=== PATIENT | male | born 1965 | race Caucasian/White ===

== ENCOUNTER 2022-02-17 13:10 | Emergency (ER) | payer SELFPAY ==
[2022-02-17 13:25] VITALS: BP 161/89; PULSE 75; RESP 18; TEMP 37.2; O2SAT 98; BMI 25.1
--- NOTE | 2022-02-17 13:34 | CRLHL7_ITS ---
For Patients: As a result of the Century Cures Act, medical imaging exams and procedure reports are released immediately into your electronic medical record. You may view this report before your referring provider. If you have questions, please contact your health care provider. INDICATION: Left lower quadrant abdominal pain. TECHNIQUE: CT abdomen and pelvis acquired with 79 mL Isovue 370 IV contrast. Coronal and sagittal reformats were generated. COMPARISON: None. FINDINGS: Lower chest: Unremarkable. Liver: Unremarkable. Gallbladder and bile ducts: Small dependent density in the gallbladder is likely a small stone. No wall thickening or pericholecystic fluid. The common bile duct is normal in caliber. Spleen: Unremarkable. Pancreas: Unremarkable. Adrenal glands: Unremarkable. No nodules. Kidneys and Ureters: Unremarkable. No suspicious masses, stones, or hydronephrosis. Lymph Nodes and Retroperitoneum: Unremarkable. Vasculature: Unremarkable. GI tract: Unremarkable. Normal in caliber. Normal appendix. Peritoneum/Abdominal Wall: Unremarkable. No free air or free fluid. Bilateral fat containing inguinal hernias. Pelvic Viscera: Unremarkable. Bladder: Unremarkable. Bones: Mild degenerative changes. No aggressive appearing lytic or blastic lesions. IMPRESSION: No significant CT abnormality in the abdomen or pelvis or findings to suggest the etiology of the patient`s symptoms. Please note that all CT scans at this facility use dose modulation, iterative reconstruction, and/or weight-based dosing when appropriate to reduce radiation dose to as low as reasonably achievable. Dictated by Shahab Oakley MD @ 02/17/2022 2:45:08 PM (Electronically Signed)
[2022-02-17 13:51] VITALS: TEMP 37.2
[2022-02-17] MEDS: 0.9 % SODIUM CHLORIDE 1000 ml 1,000 ML IV (13:51)
[2022-02-17] MEDS: KETOROLAC 30 MG/ML inj IVP (13:51)
[2022-02-17] MEDS: ONDANSETRON 2 MG/ML inj 4 MG IVP (13:52)
--- NOTE | 2022-02-17 13:52 | ED_ITS ---
HPI - Abdominal Pain General Date Seen: 02/17/22 Chief Complaint: Abdominal Pain Stated Complaint: Severe Pain in stomach w/ nausea Time Seen by Provider: 02/17/22 13:19 Source: patient Mode of arrival: ambulatory Limitations: no limitations History of Present Illness HPI narrative: Patient is a 56-year-old gentleman who presents ambulatory to the emergency room with his , he was initially seen in urgent care and like fill, transferred here cause of the thought possibly imaging would be needed. He has had left- sided lower abdominal pain now for approximately 1 weeks time. Waxes and wanes, he has been able to eat with so seated with this, but clearly the thing that helps the most is having a bowel movement. He has had no fevers or chills there has been no blood in his stools. Previous colonoscopies of all been normally said 2 have been done previously. No comment was made for diverticulosis noted with this. He has had no previous history of abdominal surgeries, denies any pain radiating to his back or anywhere else, associated with this is more of a crampy type discomfort, he did have a normal bowel movement today, but previously had gone to the bathroom for 4 days. 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 Takes omeprazole for us stomach and heartburn related issues. Was previously antihypertensives. Related Data Home Medications Medication Instructions Recorded Confirmed omeprazole 20 mg delayed 20 mg PO Q24H 02/17/22 02/17/22 release,disintegrating tablet Previous Rx's Medication Instructions Recorded hyoscyamine sulfate 0.125 mg 0.125 mg PO BID-QID PRN dyspepsia 02/17/22 tablet (Levsin) #30 tabs Allergies Allergy/AdvReac Type Severity Reaction Status Date / Time Penicillins Allergy Severe Hives Verified 02/17/22 13:24 Review of Systems Status of ROS Reports: 10 or more systems reviewed and unremarkable except as noted in History and below PFSH PFS Social History Smoking Status: Current every day smoker What tobacco products do you use: cigarettes Smoking packs per day: 0.5 Smoking cigarettes per day: 10.0 Years smoked: 30 Smoking pack-years: 15.00 Do you use any of these nicotine containing products: None Second hand tobacco smoke exposure: Yes How often do you have a drink containing alcohol: 4 or more times a week How many standard drinks containing alcohol do you have on a typical day: 5 or 6 How often do you have six or more drinks on one occasion: Never AUDIT-C Alcohol total score: 6 Non-prescribed substance use: denies use service: No Exam Narrative: Exam Narrative: Patient is seen in room 3 he is in no apparent distress he is alert and oriented speaking to me normally, with his , bit of a tamia complexion is noted. There is no scleral icterus redness TMs are normal oropharynx normal, neck is supple full range of motion, chest is clear bilaterally no wheezing crackles noted, easy respirations., S1-S2 are normal, no clicks murmurs or gallops on auscultation of his heart. His abdomen is soft and slightly obese, he has tenderness mild to moderate in the left lower quadrant, no peritoneal signs, bowel sounds are quiet, no hernias noted bilaterally and normal male genitalia. Moves all extremities independently and well, neurologically intact in his upper lower extremities, no skin rashes are no Const: Vital Signs, click to edit/add: Vital Signs - 24 hr 02/17/22 13:25 02/17/22 13:51 02/17/22 14:03 Temperature 99.0 F 99.0 F 99.0 F Pulse Rate [Right Radial] 75 75 Respiratory Rate 18 18 Blood Pressure [Ri ght Upper Arm] 161/89 H 161/89 H Pulse Oximetry 98 98 Oxygen Delivery Me thod Room Air Room Air 02/17/22 14:14 02/17/22 16:07 Temperature 99.0 F Pulse Rate [Right Radial] 70 70 Respiratory Rate 16 16 Blood Pressure [Ri ght Upper Arm] 147/92 H 152/89 H Pulse Oximetry 97 Oxygen Delivery Me thod Room Air Course Course Hospital Course: I reviewed with the patient and his that the CT was normal, no evidence of any acute abnormality laboratory test was reassuring, I wonder if this is a variant of irritable bowel syndrome, but I do not think there is an acute issue, such as diverticulitis nephrolithiasis her that sore to issue going on. Would recommend follow-up with primary care, will try some Levsin to see if this helps him. Vital Signs Vital signs: Initial Vital Signs Temperature 99.0 F 02/17/22 13:25 Temperature Source Temporal Artery Scan 02/17/22 13:25 Pulse Rate 75 02/17/22 13:25 Pulse Rhythm 02/17/22 13:25 Pulse Strength 3+ Normal 02/17/22 13:25 Respiratory Rate 18 02/17/22 13:25 Blood Pressure 161/89 H 02/17/22 13:25 Blood Pressure Mean 113 02/17/22 13:25 Pulse Oximetry 98 02/17/22 13:25 Oxygen Delivery Method 02/17/22 13:25 Vital Signs Temperature 99.0 F 02/17/22 13:25 Pulse Rate 75 02/17/22 13:25 Respiratory Rate 18 02/17/22 13:25 Blood Pressure 161/89 H 02/17/22 13:25 Pulse Oximetry 98 02/17/22 13:25 Oxygen Delivery Method 02/17/22 13:25 Temperature 99.0 F 02/17/22 16:07 Pulse Rate 70 02/17/22 16:07 Respiratory Rate 16 02/17/22 16:07 Blood Pressure 152/89 H 02/17/22 16:07 Pulse Oximetry 97 02/17/22 14:14 Oxygen Delivery Method 02/17/22 14:14 MDM - Abdominal Pain MDM Narrative Medical decision making narrative: During this evaluation of this patient I considered multiple differential diagnosis is which included the life-threatening such as appendicitis, aortic aneurysm, mesenteric ischemia, bowel perforation, volvulus, and bowel obstruction. Other differential diagnosis is include but are not limited to cholecystitis, pancreatitis, hepatitis, gastritis, GERD, diverticulitis, peptic ulcer disease, pyelonephritis/UTI, renal colic/stone, testicular torsion as well as other acute scrotal processes, inflammatory bowel disease, as well as other etiologies Medical Records Attestation: I reviewed the patient's medical records. Lab Data Attestation: I reviewed the patient's lab results. Labs: Lab Results 02/17/22 02/17/22 02/17/22 Range/Units 13:50 13:50 13:50 WBC 4.93 (4.50-11.00) K/uL RBC 5.50 (4.30-5.90) m/uL Hgb 17.4 (13.5-17.5) gm/dL Hct 51.8 (37.0-53.0) % MCV 94 (80-100) fL MCH 32 (26-34) pg MCHC 34 (32-36) gm/dL RDW Coeff of William 12.8 (11.5-15.5) % Plt Count 240 (140-440) K/uL Neut % (Auto) 59.7 (42.0-72.0) % Lymph % (Auto) 22.7 (20-44) % [place] % (Auto) 15.2 H (0.0-11.0) % Eos % (Auto) 1.4 (0.0-7.0) % Baso % (Auto) 0.8 (0.0-3.0) % Neut # (Auto) 2.94 (1.7-7.0) K/uL Lymph # (Auto) 1.12 (0.90-2.90) K/uL [place] # (Auto) 0.70 (0.00-0.90) K/UL Eos # (Auto) 0.07 (0.00-0.50) K/uL Baso # (Auto) 0.04 (0.00-0.30) K/uL Abs Immat Gran (auto) 0.01 (0.00-0.30) K/uL Sodium 132 L (135-149) mmol/L Potassium 4.8 (3.6-5.1) mmol/L Chloride 97 (96-114) mmol/L Carbon Dioxide 26 (20-32) mmol/L BUN 10 (7-30) mg/dL Creatinine 0.9 (0.5-1.5) mg/dL Estimated Creat Clear 84.67 Estimated GFR 100 ml/min Glucose 92 (60-115) mg/dL Lactate 1.3 (0.5-1.9) mmol/L Calcium 9.4 (8.4-10.6) mg/dL Total Bilirubin 1.0 (0.1-1.5) mg/dL Direct Bilirubin 0.1 (0.0-0.5) mg/dL AST 33 (12-35) U/L ALT 28 (4-50) U/L Alkaline Phosphatase 86 (40-150) U/L C-Reactive Protein < 0.5 L (0.5-1.0) mg/dL Total Protein 8.7 H (6.0-8.3) g/dL Albumin 4.9 (3.3-5.0) g/dL Amylase 100 H (18-89) U/L Lipase 160 (23-300) U/L Urine Color (Yellow) Urine Appearance (Clear) Urine pH (5.0-8.5) Ur Specific [place]osc[place] (1.000-1.030) Urine Protein (Negative) Urine Glucose (UA) (Negative) Urine Ketones (Negative) Urine Blood (Negative) Urine Nitrite (Negative) Urine Bilirubin (Negative) Urine Urobilinogen (0.2-1.0) Ur Leukocyte Esterase (Negative) Urine RBC (0-2) Urine WBC (0-5) Ur Squamous Epith Cells (None-Few) Urine Bacteria (None) Ethyl Alcohol < 0.01 L (0.01-0.03) % SARS-CoV-2 (PCR) (Negative) Influenza Type A (PCR) (Negative) Influenza Type B (PCR) (Negative) RSV (PCR) (Negative) 02/17/22 02/17/22 Range/Units 13:50 15:20 WBC (4.50-11.00) K/uL RBC (4.30-5.90) m/uL Hgb (13.5-17.5) gm/dL Hct (37.0-53.0) % MCV (80-100) fL MCH (26-34) pg MCHC (32-36) gm/dL RDW Coeff of William (11.5-15.5) % Plt Count (140-440) K/uL Neut % (Auto) (42.0-72.0) % Lymph % (Auto) (20-44) % [place] % (Auto) (0.0-11.0) % Eos % (Auto) (0.0-7.0) % Baso % (Auto) (0.0-3.0) % Neut # (Auto) (1.7-7.0) K/uL Lymph # (Auto) (0.90-2.90) K/uL [place] # (Auto) (0.00-0.90) K/UL Eos # (Auto) (0.00-0.50) K/uL Baso # (Auto) (0.00-0.30) K/uL Abs Immat Gran (auto) (0.00-0.30) K/uL Sodium (135-149) mmol/L Potassium (3.6-5.1) mmol/L Chloride (96-114) mmol/L Carbon Dioxide (20-32) mmol/L BUN (7-30) mg/dL Creatinine (0.5-1.5) mg/dL Estimated Creat Clear Estimated GFR ml/min Glucose (60-115) mg/dL Lactate (0.5-1.9) mmol/L Calcium (8.4-10.6) mg/dL Total Bilirubin (0.1-1.5) mg/dL Direct Bilirubin (0.0-0.5) mg/dL AST (12-35) U/L ALT (4-50) U/L Alkaline Phosphatase (40-150) U/L C-Reactive Protein (0.5-1.0) mg/dL Total Protein (6.0-8.3) g/dL Albumin (3.3-5.0) g/dL Amylase (18-89) U/L Lipase (23-300) U/L Urine Color Yellow (Yellow) Urine Appearance Clear (Clear) Urine pH 7.0 (5.0-8.5) Ur Specific [place]osc[place] 1.010 (1.000-1.030) Urine Protein Negative (Negative) Urine Glucose (UA) Negative (Negative) Urine Ketones Negative (Negative) Urine Blood Negative (Negative) Urine Nitrite Negative (Negative) Urine Bilirubin Negative (Negative) Urine Urobilinogen 0.2 (0.2-1.0) Ur Leukocyte Esterase Negative (Negative) Urine RBC 0-2 (0-2) Urine WBC 0-2 (0-5) Ur Squamous Epith Cells None (None-Few) Urine Bacteria None (None) Ethyl Alcohol (0.01-0.03) % SARS-CoV-2 (PCR) Negative SARS-CoV-2 (Negative) Influenza Type A (PCR) Negative PCR FLU A (Negative) Influenza Type B (PCR) Negative PCR FLU B (Negative) RSV (PCR) Negative PCR RSV (Negative) Imaging Data CT scan - abdomen: Attestation: I have reviewed the pertinent imaging results. Radiologist's impression: Patient: VINCENT KIM Facility: [facility] . Site : [id number] Study: CT Abdomen/Pelvis w/ Contrast-02/17/2022 2:14:56 PM Ordering Physician: [place] Final Report: INDICATION: Left lower quadrant abdominal pain. TECHNIQUE: CT abdomen and pelvis acquired with 79 mL Isovue 370 IV contrast. Coronal and sagittal reformats were generated. COMPARISON: None. FINDINGS: Lower chest: Unremarkable. Liver: Unremarkable. Gallbladder and bile ducts: Small dependent density in the gallbladder is likely a small stone. No wall thickening or pericholecystic fluid. The common bile duct is normal in caliber. Spleen: Unremarkable. Pancreas: Unremarkable. Adrenal glands: Unremarkable. No nodules. Kidneys and Ureters: Unremarkable. No suspicious masses, stones, or hydronephrosis. Lymph Nodes and Retroperitoneum: Unremarkable. Vasculature: Unremarkable. GI tract: Unremarkable. Normal in caliber. Normal appendix. Peritoneum/Abdominal Wall: Unremarkable. No free air or free fluid. Bilateral fat containing inguinal hernias. Pelvic Viscera: Unremarkable. Bladder: Unremarkable. Bones: Mild degenerative changes. No aggressive appearing lytic or blastic lesions. IMPRESSION: No significant CT abnormality in the abdomen or pelvis or findings to suggest the etiology of the patient`s symptoms. Please note that all CT scans at this facility use dose modulation, iterative reconstruction, and/or weight-based dosing when appropriate to reduce radiation dose to as low as reasonably achievable. Dictated by Shahab Oakley MD @ 02/17/2022 2:45:08 PM (Electronic Signature) Discharge Plan Discharge Clinical Impression: Abdominal pain Patient Disposition: Home w/ Parent or Adult Condition: Stable Instructions: Acute Abdominal Pain (DC) Additional Instructions: Home rest I will give you prescription for some anti spasmodic medications for your abdominal pain, good news is the laboratory tests in the CT were all normal. I would recommend no alcohol for the next 5-6 days, sometimes this complaint into also. In you on with your omeprazole, follow-up with primary care, as your blood pressure was elevated here, if this continues to be elevated then other treatments may be needed. Prescriptions: New hyoscyamine sulfate [Levsin] 0.125 mg tablet 0.125 mg PO BID-QID PRN (Reason: dyspepsia) Qty: 30 0RF No Action omeprazole 20 mg tablet,disintegrat, delay rel 20 mg PO Q24H Follow Up/Referrals: Provider,Not a Local [Primary Care Provider] - Stand Alone Forms: MyHealth Info Instructions
[2022-02-17 13:58] LABS: Lactate* 1.3 mmol/L (0.5-1.9)
[2022-02-17 14:02] LABS: Basophils Absolute Auto 0.04 K/uL (0.00-0.30); Basophils Percent Auto 0.8 % (0.0-3.0); Eosinophils Absolute Auto 0.07 K/uL (0.00-0.50); Eosinophils Percent Auto 1.4 % (0.0-7.0); Hematocrit 51.8 % (37.0-53.0); Hemoglobin* 17.4 gm/dL (13.5-17.5); Immature Granulocytes Abs Auto 0.01 K/uL (0.00-0.30); Lymphocytes Absolute Auto 1.12 K/uL (0.90-2.90); Lymphocytes Percent Auto 22.7 % (20-44); Mean Corpuscular HGB Conc 34 gm/dL (32-36); Mean Corpuscular Hemoglobin 32 pg (26-34); Mean Corpuscular Volume 94 fL (80-100); Monocytes Percent Auto 15.2 % (0.0-11.0); Neutrophils Absolute Auto 2.94 K/uL (1.7-7.0); Neutrophils Percent Auto 59.7 % (42.0-72.0); Platelet Count* 240 K/uL (140-440); RDW Coefficient of Variation % 12.8 % (11.5-15.5); White Blood Count* 4.93 K/uL (4.50-11.00)
[2022-02-17 14:03] VITALS: BP 161/89; PULSE 75; RESP 18; TEMP 37.2; O2SAT 98
[2022-02-17 14:05] LABS: Slide Review Reflex No
[2022-02-17 14:14] VITALS: BP 147/92; PULSE 70; RESP 16; O2SAT 97
[2022-02-17 14:15] LABS: Albumin* 4.9 g/dL (3.3-5.0); Chloride* 97 mmol/L (96-114)
[2022-02-17 14:16] LABS: Potassium* 4.8 mmol/L (3.6-5.1); Sodium* 132 mmol/L (135-149)
[2022-02-17 14:18] LABS: Amylase* 100 U/L (18-89); Bilirubin Direct* 0.1 mg/dL (0.0-0.5); Carbon Dioxide* 26 mmol/L (20-32); Creatinine* 0.9 mg/dL (0.5-1.5); Est. Creatinine Clearance* 84.67; Estimated Glomerular Filt Rate 100 ml/min; Total Protein* 8.7 g/dL (6.0-8.3)
[2022-02-17 14:19] LABS: Alanine Aminotransferase* 28 U/L (4-50); Alkaline Phosphatase* 86 U/L (40-150); Aspartate Amino Transferase* 33 U/L (12-35); Blood Urea Nitrogen* 10 mg/dL (7-30); Calcium* 9.4 mg/dL (8.4-10.6); Glucose* 92 mg/dL (60-115); Lipase* 160 U/L (23-300)
[2022-02-17 14:20] LABS: Ethanol* < 0.01 % (0.01-0.03)
[2022-02-17 14:22] LABS: C Reactive Protein* < 0.5 mg/dL (0.5-1.0)
[2022-02-17 14:45] LABS: PCR FLU A Negative PCR FLU A (Negative); PCR FLU B Negative PCR FLU B (Negative); PCR RSV Negative PCR RSV (Negative)
[2022-02-17 14:54] LABS: SARS PCR* Negative SARS-CoV-2 (Negative)
[2022-02-17 15:41] LABS: Appearance Urine Clear (Clear); Bilirubin Urine Negative (Negative); Blood Urine Negative (Negative); Color Urine Yellow (Yellow); Glucose Urine Negative (Negative); Ketones Urine Negative (Negative); Leukocyte Esterase Urine Negative (Negative); Nitrite Urine Negative (Negative); Protein Urine Negative (Negative); Urobilinogen Urine 0.2 (0.2-1.0)
[2022-02-17 15:55] LABS: RBC Urine 0-2 (0-2); WBC Urine 0-2 (0-5)
[2022-02-17 16:07] VITALS: BP 152/89; PULSE 70; RESP 16; TEMP 37.2
== END 2022-02-17 16:08 | disposition home or self-care (01) ==
PROVIDERS: Emergency Provider Family Medicine
DX: R10.32 Left lower quadrant pain (principal)
CPT/HCPCS: 36415; 74177; 80048; 80076; 81001; 82077; 82150; 83605; 83690; 85025; 86140; 87502; 87634; 87635; 96374; 96375; 99284; J1885; J2405; J7030; Q9967

== ENCOUNTER 2022-12-15 15:24 | Outpatient (CLI) | payer OTHER, SELFPAY | END 2022-12-15 15:25 | disposition home or self-care (01) | PROVIDERS: Visit Provider Emergency Medicine | DX: Z00.00 Encounter for general adult medical examination without abnormal findings (principal); E78.5 Hyperlipidemia, unspecified; I10 Essential (primary) hypertension; R23.3 Spontaneous ecchymoses | CPT/HCPCS: 80048; 80061; 80076; 85610; 85730 ==